=== PATIENT | female | born 1990 | race Caucasian/White ===

== ENCOUNTER 2024-08-21 01:29 | Emergency (ER) | payer SELFPAY ==
[2024-08-21 01:32] VITALS: BP 131/60; PULSE 88; RESP 18; TEMP 36.7; O2SAT 100
--- NOTE | 2024-08-21 01:44 | ED.GENADULT ---
HPI - General Adult General Chief complaint: Overdose Stated complaint: overdose Time Seen by Provider: 08/21/24 01:42 Source: patient and EMS Mode of arrival: EMS Limitations: no limitations History of Present Illness HPI narrative: 34 years old white female came to the ED by ambulance/ tacker off with possible fentanyl overdose. Patient was driving fast, followed by a policman, once arrived to her house came out of the car and leaned against the car and told the policman that she had fentanyl overdose and received 3 shots of Narcan at her friend's house prior to driving. On arrival to the ED patient is awake, alert oriented x4 feeling nauseated, vomited once. Feeling sleepy and tired. Related Data Home Medications ?Medication ?Instructions ?Recorded ?Confirmed ?Last Taken ?Type bupropion HCl 150 mg 24 hr tablet, mg PO 08/21/24 Unknown History extended release enoxaparin 40 mg/0.4 mL mg 08/21/24 Unknown History subcutaneous syringe Allergies Allergy/AdvReac Type Severity Reaction Status Date / Time Penicillins Allergy Mild Rash Verified 08/21/24 04:17 Review of Systems Review of Systems: All systems reviewed & are unremarkable except as noted in HPI and below Exam Narrative: General appearance: Well-developed, well-nourished, patient is not choking or have trouble breathing, does not have limb body, Skin: Normal color, no discolored skin in the lips and nails Head: Normocephalic, nontraumatic Eyes: Clear conjunctiva people are normal size, reactive to light bilaterally, ENT: Oropharynx normal, ears normal, nose normal Neck: Supple, nontender Chest and respiratory: Airway patent, no respiratory distress, no accessory muscle use Heart: Regular rate/rhythm Abdomen: Soft, nontender, no organomegaly, quiet bowel sounds Vascular: Normal peripheral pulses, normal capillary refill. Musculoskeletal: Normal range of motion, nontender back Neurologic: Alert and oriented ?3, VENDING TECHNICIAN is normal as tested, no gross motor deficit Course Vital Signs Vital signs: Vital Signs Temperature 36.7 C 08/21/24 01:32 Pulse Rate 88 08/21/24 01:32 Respiratory Rate 18 08/21/24 01:32 Blood Pressure 131/60 08/21/24 01:32 Pulse Oximetry 100 08/21/24 01:32 Oxygen Delivery Room Air 08/21/24 01:32 Temperature 36.7 C 08/21/24 01:32 Pulse Rate 88 08/21/24 01:32 Respiratory Rate 18 08/21/24 01:32 Blood Pressure 131/60 08/21/24 01:32 Pulse Oximetry 100 08/21/24 01:32 Oxygen Delivery Room Air 08/21/24 01:32 Medical Decision Making MDM Narrative Medical decision making narrative: patient came to the ED with possible fentanyl overdose vital signs on arrival to the ED stable Physical examination showing patient without significant physical findings Differential diagnosis include poly drug use, alcohol., lying to get away from the police Blood workup today includes CBC, CMP, urine drug screen which showed no significant abnormality. Lying to get away from the police is my concern. Differential Diagnosis Differential Diagnosis: as above Vital Signs Vital Signs: Vital Signs Temperature 36.7 C 08/21/24 01:32 Pulse Rate 88 08/21/24 01:32 Respiratory Rate 18 08/21/24 01:32 Blood Pressure 131/60 08/21/24 01:32 Pulse Oximetry 100 08/21/24 01:32 Oxygen Delivery Room Air 08/21/24 01:32 Temperature 36.7 C 08/21/24 01:32 Pulse Rate 88 08/21/24 01:32 Respiratory Rate 18 08/21/24 01:32 Blood Pressure 131/60 08/21/24 01:32 Pulse Oximetry 100 08/21/24 01:32 Oxygen Delivery Room Air 08/21/24 01:32 Lab Data 08/21/24 02:21 08/21/24 02:21 Labs: Lab Results 08/21/24 Range/Units 02:21 WBC 7.0 (4.8-10.8) K/mm3 RBC 4.26 (4.20-5.40) M/mm3 Hgb 11.6 L (12.0-15.0) g/dL Hct 35.4 (35.0-49.0) % MCV 83.1 (78.0-102.0) fL MCH 27.2 (27.0-31.0) pg MCHC 32.8 (32-36) g/dL RDW 13.6 (11.6-14.4) % Plt Count 274 (150-420) K/mm3 MPV 9.7 (9.2-11.8) fl Immature Gran % (Auto) 0.4 H (0.0-0.0) % Neut % (Auto) 61.0 (50.0-70.0) % Lymph % (Auto) 26.8 (18.0-42.0) % [place] % (Auto) 7.7 (2.0-11.0) % Eos % (Auto) 3.7 (1.0-6.0) % Baso % (Auto) 0.4 (0.0-1.0) % Lymph # (Auto) 1.88 (1.10-4.50) K/mm3 [place] # (Auto) 0.54 (0.10-0.90) K/mm3 Eos # (Auto) 0.26 (0.02-0.50) K/mm3 Baso # (Auto) 0.03 (0.00-0.10) K/mm3 Abs Immat Gran (auto) 0.03 H (0.00-0.00) K/mm3 Absolute Neuts (auto) 4.28 (1.70-7.20) K/mm3 Absolute Nucleated RBC 0.00 (0.00-0.00) K/mm3 Nucleated RBC % 0.0 (0-0.0) % Sodium 141 (136-145) mmol/L Potassium 3.2 L (3.5-5.1) mmol/L Chloride 105 (98-108) mmol/L Carbon Dioxide 26 (21-32) mmol/L Anion Gap 10 (4-12) mmol/L BUN 6 L (7-18) mg/dL Creatinine 0.67 (0.55-1.02) mg/dL Estim Creat Clear Calc 95 ml/min Estimated GFR > 60 (59 - ) Glucose 82 (70-99) mg/dL Calculated Osmolality 288 (285-295) mOsm/kg Calcium 8.6 (8.5-10.1) mg/dL Total Bilirubin 0.4 (0.00-1.00) mg/dL AST 11 L (15-37) U/L ALT 21 (14-59) U/L Alkaline Phosphatase 116 (46-116) U/L Total Protein 6.5 (6.4-8.2) g/dL Albumin 2.8 L (3.4-5.0) g/dL Urine Opiates Screen Negative (Negative) Urine Methadone Screen Negative (Negative) Ur Barbiturates Screen Negative (Negative) Ur Phencyclidine Scrn Negative (Negative) Ur Amphetamine Screen Negative (Negative) U Benzodiazepines Scrn Negative (Negative) Urine Cocaine Screen Negative (Negative) U Cannabinoids Screen Negative (Negative) Ethyl Alcohol < 3 (0-6) mg/dL Critical Care Time Critical Care Time Critical Care Time: No Discharge Plan Discharge Clinical Impression: Normal physical exam Patient Disposition: Home, Self-Care Condition: Improved Instructions: Normal Exam (ED) Additional Instructions: Return if symptoms are worsening , call your family physician for appointment, take Tylenol as as needed for aches and pain, continue home medications. Follow-up with substance abuse instructions for help. Patient Language: Sammarinese Prescriptions: No Action enoxaparin 40 mg/0.4 mL syringe bupropion HCl 150 mg tablet extended release 24 hr PO Follow-up/Referrals: Charles Roberts M.D. [Primary Care Provider] -
--- OUTSIDE RECORDS SUMMARY | 2024-08-21 01:49 | XMS_ITS | Clinical Summary ---
Author Organization [facility] Address [address] [place] [address] Care Team Providers Care Skein Yarn Dyer Name Role Phone Charles Roberts MD Primary Care Provider [phone] Allergies Active Allergy Reactions Criticality Noted Date Comments Codeine Itching 11/09/2017 Penicillins Throat swelling 05/31/2020 Medications sertraline 100 MG tablet Take 1 tablet (100 mg total) by mouth daily. Active QUEtiapine (SEROQUEL) 50 MG tablet Take 1 tablet (50 mg total) by mouth nightly at bedtime. Active hydrOXYzine (VISTARIL) 50 MG capsule Take 1 capsule (50 mg total) by mouth 3 (three) times daily as needed. FOR ANXIETY 2 Active omeprazole (PRILOSEC) 20 MG capsule Take 1 capsule (20 mg total) by mouth daily. Active dicyclomine (BENTYL) 20 MG tablet Take 1 tablet (20 mg total) by mouth every 6 (six) hours. 120 tablet 4 Active famotidine (PEPCID) 20 MG tablet Take 1 tablet (20 mg total) by mouth 2 (two) times daily. 20 tablet 4 Active ondansetron (ZOFRAN-ODT) 4 MG disintegrating tablet Take 1 tablet (4 mg total) by mouth every 8 (eight) hours as needed for Nausea. 20 tablet 4 Active Active Problems Problem Noted Date Diagnosed Date ([facility]) 06/07/2021 PRES (posterior reversible encephalopathy syndro me) 11/09/2017 Stroke ([facility]) 11/08/2017 Estimated Date of Delivery Comme nts Yes 03/10/2025 Encounters Date Type Department Care Team Description 08/09/2024 12:30 AM MEDICAL ADMINISTRATOR - 08/09/2024 1:49 AM MEDICAL ADMINISTRATOR Emergency [facility] [address] [place] [address] [place] [address] Chago Worley MD Vomiting Discharge Disposition: Home or Self Care (Routine Discharge) 08/09/2024 Travel from Last 3 Months Family History Medical History Relation Comments Cancer Father Cancer Maternal Grandfather Diabetes Maternal Grandfather Cancer Maternal Grandmother Diabetes Maternal Grandmother thyroid Mother Relation Status Comments Father Alive colon cancer bra in tumor Maternal Grandfather Maternal Grandmother Mother Alive Social History Tobacco Use Types Packs/Day Years Used Date Smoking Tobacco: Never Smokeless Tobacco: Never Tobacco Cessation:Counseling Given: Not Answered Alcohol Use Standard Drinks/Week Comments Not Currently 0 (1 standard drink = 0.6 oz pur e alcohol) Estimated Date of Delivery Comme nts Yes 03/10/2025 Sex and Gender Information Value Date Recorded Sex Assigned at Female 06/16/2021 7:03 AM MEDICAL ADMINISTRATOR Legal Sex Female 10:07 PM MEDICAL ADMINISTRATOR Gender Identity Female 06/16/2021 7:03 AM MEDICAL ADMINISTRATOR Sexual Orientation Straight 06/16/2021 7: 03 AM MEDICAL ADMINISTRATOR Last Filed Vital Signs Vital Sign Reading Time Taken Comments Blood Pressure 135/102 08/09/2024 1:45 AM MEDICAL ADMINISTRATOR Pulse 95 08/09/2024 12:30 AM MEDICAL ADMINISTRATOR Temperature 36.7 C (98 F) 08/09/2024 12:30 AM MEDICAL ADMINISTRATOR Respiratory Rate 16 08/09/2024 12:30 AM MEDICAL ADMINISTRATOR Oxygen Saturation 100% 08/09/2024 1:45 AM MEDICAL ADMINISTRATOR Inhaled Oxygen Concentration - - Weight 71.8 kg (158 lb 6.4 oz) 08/09/2024 12:32 AM MEDICAL ADMINISTRATOR Height 160 cm (5' 3 ) 08/09/2024 12:32 AM MEDICAL ADMINISTRATOR Body Mass Index 28.06 08/09/2024 12:32 AM MEDICAL ADMINISTRATOR Plan of Treatment Health Maintenance Due Date Last Done Comments Cervical Cancer Screening Pa p Smear (Age 30 to 64) Every 3 Years 1988 Annual Physical 1991 Hepatitis C 2006 Hepatitis B Vaccines (1 of 3 - 19+ 3-dose series) 2007 Cervical Cancer Screening Pa p with HPV Testing (Age 30 to 64) Every 5 Years 2018 Cervical Cancer Screening wi th HPV 2018 COVID-19 Vaccine (3 - 2023-2 5 season) 2024 08/11/2021, 01/10/2021 Influenza Adult (#1) 2024 DTaP, Tdap and Td Vaccines ( 2 - Td or Tdap) 08/08/2029 08/08/2019 HPV Vaccines Aged Out No longer eligi ble based on patient's age to complete this topic Meningococcal B Vaccine Aged Out No l onger eligible based on patient's age to complete this topic Meningococcal Vaccine Aged Out No sophia stefanie eligible based on patient's age to complete this topic Pneumococcal Vaccine: Pediatrics (0 to 5 Years) and At-Risk Patients (6 to 64 Years) Aged Out No longer eligible b ased on patient's age to complete this topic RSV Immunization or 60+ Years (No Doses Required) Completed RSV Immunizations Under 20 Months Aged Out No longer eligible b ased on patient's age to complete this topic Procedures Procedure Name Priority Date/Time Associated Diagnosis Comments COMPREHENSIVE METABOLIC PANEL STAT 08/09/2024 12:52 AM MEDICAL ADMINISTRATOR CBC W/DIFF AUTOMATED STAT 08/09/2024 12:52 AM MEDICAL ADMINISTRATOR INFLUENZA A & B STAT 08/09/2024 12:45 AM MEDICAL ADMINISTRATOR CORONAVIRUS (COVID-19) ANTIGEN STAT 08/09/2024 12:45 AM MEDICAL ADMINISTRATOR from Last 3 Months Results * (ABNORMAL) COMPREHENSIVE METABOLIC PANEL (08/09/2024 12:52 AM MEDICAL ADMINISTRATOR) SODIUM S/P/B 138 136 - 145 MMOL/L 08/09/2024 1:14 AM MEDICAL ADMINISTRATOR [facility] POTASSIUM S/P/B 3.8 3.5 - 5.1 MMOL/L 08/09/2024 1:14 AM MEDICAL ADMINISTRATOR [facility] Comment:MILD HEMOLYSIS, RESU LT MAY BE AFFECTED. CHLORIDE S/P/B 101 98 - 107 MMOL/L 08/09/2024 1:14 AM [facility] CO2 24.6 21.0 - 32.0 MMOL/L 08/09/2024 1:14 AM [facility] GLUCOSE 97 70 - 99 MG/DL 08/09/2024 1:14 AM [facility] Comment: FASTING GLUCOSE 100 TO 125 MG/DL IS CONSISTENT WITH IMPAIRED FASTING GLUCOSE. FASTING GLUCOSE >125 MG/DL IS CONSISTENT WITH DIABETES. RANDOM GLUCOSE >200 MG/DL WITH HYPERGLYCEMIC SYMPTOMS IS CONSISTENT WITH DIABETES. PER ADA GUIDELINES BUN 9 6 - 24 MG/DL 08/09/2024 1:14 AM [facility] CREATININE S/P/B 0.68 0.55 - 1.02 MG/DL 08/09/2024 1:14 AM [facility] CALCIUM S/P/B 8.8 8.4 - 10.5 MG/DL 08/09/2024 1:14 AM [facility] BILIRUBIN TOTAL S/P/B 1.4(H) 0.2 - 1.0 MG/DL 08/09/2024 1:14 AM [facility] Comment: THIS ASSAY IS NOT RECOMMENDED FOR PATIENTS UNDERGOING TREATMENT WITH ELTROMBOPAG DUE TO THE POTENTIAL FOR FALSELY ELEVATED RESULTS. ALKALINE PHOSPHATASE S/P/B 126(H) 37 - 98 U/L 08/09/2024 1:14 AM [facility] AST 37 15 - 37 U/L 08/09/2024 1:14 AM [facility] Comment:MILD HEMOLYSIS, RESU LT MAY BE AFFECTED. ALT 33 14 - 59 U/L 08/09/2024 1:14 AM [facility] TOTAL PROTEIN S/P/B 7.3 6.4 - 8.2 G/DL 08/09/2024 1:14 AM [facility] ALBUMIN S/P/B 3.5 3.4 - 5.0 G/DL 08/09/2024 1:14 AM [facility] ANION GAP 12.4 5.0 - 15.0 MMOL/L 08/09/2024 1:14 AM MEDICAL ADMINISTRATOR [facility] OSMOLALITY (CALC) 285 MOSM/KG 025 1:14 AM [facility] Comment:REFERENCE RANGE NOT ESTABLISHED GFR ESTIMATE >90 >89 ML/MIN/1. 73 M2 08/09/2024 1:14 AM [facility] GFR NOTES GFR REFERENCE S: 08/09/2024 1:14 AM [facility] Comment: THE ESTIMATED GFR IS CALCULATED USING THE 2020 CKD-EPI EQUATION. THE FOLLOWING CATEGORIES FOR GRADING RENAL FUNCTION ARE RECOMMENDED BY THE INTERNATIONAL SOCIETY OF NEPHROLOGY (KDIGO 2012 CLINICAL PRACTICE GUIDELINE). G1,NORMAL OR HIGH: >89 ml/min/1.73 m2 G2,MILDLY DECREASED: 60-89 ml/min/1.73 m2 G3A,MILDLY TO MODERATELY DECREASED: 45-59 ml/min/1.73 m2 G3B,MODERATELY TO SEVERELY DECREASED: 30-44 ml/min/1.73 m2 G4,SEVERELY DECREASED: 15-29 ml/min/1.73 m2 G5,KIDNEY FAILURE: <15 ml/min/1.73 m2 08/09/2024 12:5 2 AM MEDICAL ADMINISTRATOR Chago Worley MD LABORATORY Final Result [facility] [address] [place] [address], * (ABNORMAL) CBC W/DIFF AUTOMATED (08/09/2024 12:52 AM MEDICAL ADMINISTRATOR) WBC 10.44 4.00 - 10.80 x10'3/uL 08/09/2024 12:57 AM MEDICAL ADMINISTRATOR [facility] RBC 5.14 4.10 - 5.40 x10'6/uL 08/09/2024 12:57 AM [facility] HGB 14.1 12.0 - 16.0 G/DL 08/09/2024 12:57 AM [facility] HCT 41.0 36.0 - 47.0 % 08/09/2024 12:57 AM [facility] MCV 79.8 78.0 - 100.0 FL 08/09/2024 12:57 AM [facility] MCH 27.4 27.0 - 31.0 PG 08/09/2024 12:57 AM [facility] MCHC 34.4 33.0 - 36.0 G/DL 08/09/2024 12:57 AM [facility] RDW 12.8 11.5 - 14.5 % 08/09/2024 12:57 AM [facility] PLT 252 150 - 350 x10'3/uL 08/09/2024 12:57 AM [facility] MPV 9.5 7.4 - 10.4 FL 08/09/2024 12:57 AM [facility] CBC COMMENT NORMAL REFERENCE RANGE NOT ESTABLISHED FOR THE PROPORTIONAL LEUKOCYTE DIFFERENTIAL. 08/09/2024 12:57 AM [facility] NEUTROPHILS % 73.7 % 08/09/2024 12:57 AM [facility] LYMPHOCYTES % 17.9 % 08/09/2024 12:57 AM [facility] MONOCYTES % 6.7 % 08/09/2024 12:57 AM [facility] EOSINOPHILS % 1.0 % 08/09/2024 12:57 AM [facility] BASOPHILS % 0.2 % 08/09/2024 12:57 AM [facility] IMMATURE GRANS % 0.5 % 08/09/19 12:57 AM [facility] NRBC % 0.0 % 08/09/2024 12:57 AM [facility] ABS. NEUTROPHILS 7.70 1.60 - 8.30 x10'3/uL 08/09/2024 12:57 AM [facility] ABS. LYMPHOCYTES 1.87 0.80 - 4.70 x10'3/uL 08/09/2024 12:57 AM [facility] ABS. MONOCYTES 0.70 0.00 - 1.50 x10'3/uL 08/09/2024 12:57 AM [facility] ABS. EOSINOPHILS 0.10 0.00 - 0.40 x10'3/uL 08/09/2024 12:57 AM MEDICAL ADMINISTRATOR [facility] ABS. BASOPHILS 0.02 0.00 - 0.20 x10'3/uL 08/09/2024 12:57 AM MEDICAL ADMINISTRATOR [facility] ABS. IMMATURE GRANULOCYTES 0.05(H) 0.00 - 0.03 x10'3/uL 08/09/2024 12:57 AM MEDICAL ADMINISTRATOR [facility] ABS. NUCLEATED RBC'S 0.00 0.00 - 0.01 x10'3/uL 08/09/2024 12:57 AM MEDICAL ADMINISTRATOR [facility] 08/09/2024 12:5 2 AM MEDICAL ADMINISTRATOR Chago Worley MD LABORATORY Final Result Performing Organization Address [facility] [place] [address], * CORONAVIRUS (COVID-19) ANTIGEN (08/09/2024 12:45 AM MEDICAL ADMINISTRATOR) CORONAVIRUS ANTIGEN IA NEGATIVE NEGATIVE 08/09/2024 1:15 AM MEDICAL ADMINISTRATOR [facility] Comment: NEGATIVE RESULTS DO NOT RULE OUT SARS-COV-2 INFECTION AND SHOULD NOT BE USED THE SOLE BASIS FOR TREATMENT OR PATIENT MANAGEMENT DECISIONS, INCLUDING INFECTION CONTROL DECISIONS. NEGATIVE RESULTS SHOULD BE CONSIDERED IN THE CONTEXT OF A PATIENT'S RECENT EXPOSURES, HISTORY AND THE PRESENCE OF CLINICAL SIGNS AND SYMPTOMS CONSISTENT WITH COVID 19. THIS TEST HAS BEEN AUTHORIZED BY THE FDA UNDER AN EMERGENCY USE AUTHORIZATION (EUA) FOR USE BY AUTHORIZED LABORATORIES. SPECIMEN TYPE NASAL 08/09/2024 12:52 AM MEDICAL ADMINISTRATOR [facility] NASAL NASAL STRUCTURE / Unknown 08/09/2024 12:45 AM MEDICAL ADMINISTRATOR Chago Worley MD MICROBIOLOGY - GENERAL ORDERA BLES Final Result Performing Organization Address [facility]/ZIP Co de Phone Number [facility] [address] [place], [place] [address] [address], * INFLUENZA A & B (08/09/2024 12:45 AM MEDICAL ADMINISTRATOR) SPECIMEN TYPE (INFLUENZA) NASOPHARYNGEAL SWAB 08/09/2024 12:52 AM MEDICAL ADMINISTRATOR [facility] INFLUENZA A NEGATIVE NEGATIVE 08/09/2024 1:15 AM MEDICAL ADMINISTRATOR [facility] INFLUENZA B NEGATIVE NEGATIVE 08/09/2024 1:15 AM MEDICAL ADMINISTRATOR [facility] Comment: A NEGATIVE RESULT DOES NOT EXCLUDE INFLUENZA VIRUS INFECTION. IF INFLUENZA IS CIRCULATING IN YOUR COMMUNITY, A DIAGNOSIS OF INFLUENZA SHOULD BE CONSIDERED BASED ON A PATIENT'S CLINICAL PRESENTATION AND EMPIRIC ANTIVIRAL TREATMENT SHOULD BE CONSIDERED IF INDICATED. NASOPHARYNGEAL SWAB / Unknown 08/09/2024 12:45 AM MEDICAL ADMINISTRATOR Chago Worley MD MICROBIOLOGY - GENERAL ORDERA BLES Final Result [facility] [address] [place] [id number], from Last [address] [place] [address] [address] Advance Directives * Full Code (Latest Code Status on File) Date Activated Date Inactivated Comments 06/17/2021 2:22 PM 06/19/2021 2:29 PM * Full Code Date Activated Date Inactivated Comments 06/16/2021 6:25 AM 06/17/2021 2:22 PM * Full Code Date Activated Date Inactivated Comments 06/08/2021 1:25 AM 06/08/2021 4:44 AM * Full Code Date Activated Date Inactivated Comments 06/07/2021 9:53 PM 06/08/2021 1:25 AM * Full Code Date Activated Date Inactivated Comments 05/20/2021 10:19 AM 05/20/2021 2:28 PM Care Teams Skein Yarn Dyer Relationship Specialty Start Date End Date Charles Roberts MD [address] [place] [id number] PCP - General FAMILY PRACTICE 11/09/17
--- OUTSIDE RECORDS SUMMARY | 2024-08-21 01:49 | XMS_ITS | Encounter Summary ---
Author Organization [facility] Address [address] [place] [address] Care Team Providers Care Furniture Detailer Name Role Phone Charles Roberts MD Primary Care Provider [phone] Encounter Details Date Type Department Care Team (Late st Contact Info) Description 12/10/2018 Abstract [facility] CONVERSION [address] [place] [address] , Generic Conversion, Social History Tobacco Use Types Packs/Day Years Used Date Smoking Tobacco: Never Smokeless Tobacco: Never Alcohol Use Standard Drinks/Week Comments Yes 0 (1 standard drink = 0.6 oz pur e alcohol) Comments Unknown Sex and Gender Information Value Date Recorded Sex Assigned at Female 06/16/2021 7:03 AM SURG NURSE Legal Sex Female 10:07 PM SURG NURSE Gender Identity Female 06/16/2021 7:03 AM SURG NURSE Sexual Orientation Straight 06/16/2021 7: 03 AM SURG NURSE documented as of this encounter Plan of Treatment Not on file documented as of this encounter Visit Diagnoses Not on filedocumented in this encounter Additional Health Concerns Infection Onset Date Last Indicated Resolved Time COVID-19 Rule Out 05/31/2020 05/31/2020 06/01/2020 9:52 AM SURG NURSE COVID-19 Rule Out 10/09/2020 10/09/2020 10/11/2020 6:58 AM CDT COVID-19 Rule Out 06/07/2021 06/07/2021 06/07/2021 10:25 PM SURG NURSE COVID-19 Rule Out 07/07/2021 07/07/2021 07/07/2021 1:59 AM SURG NURSE COVID-19 Rule Out 04/21/2024 04/21/2024 04/21/2024 10:40 AM CDT COVID-19 Rule Out 08/09/2024 08/09/2024 08/09/2024 1:15 AM SURG NURSE documented as of this encounter Care Teams Furniture Detailer Relationship Specialty Start Date End Date Charles Roberts MD [address] [place] [id number] PCP - General FAMILY PRACTICE 11/09/17 documented as of this encounter
[2024-08-21] MEDS: NALOXONE HCL 0.4 MG/ML VIAL IV PUSH ×2 (01:55→02:20)
[2024-08-21] MEDS: SODIUM CHLORIDE 0.9% IV 1,000 ML 999 ML IV CONT (01:55)
[2024-08-21] MEDS: ONDANSETRON INJ 4 MG/2 ML VIAL IV PUSH (02:20)
[2024-08-21 02:42] LABS: Basophils Absolute Auto 0.03 K/mm3 (0.00-0.10); Basophils Percent Auto 0.4 % (0.0-1.0); Eosinophils Absolute Auto 0.26 K/mm3 (0.02-0.50); Eosinophils Percent Auto 3.7 % (1.0-6.0); Hematocrit 35.4 % (35.0-49.0); Hemoglobin 11.6 g/dL (12.0-15.0); Immature Granulocyte Absolute 0.03 K/mm3 (0.00-0.00); Immature Granulocyte Percent A 0.4 % (0.0-0.0); Lymphocytes Absolute Auto 1.88 K/mm3 (1.10-4.50); Lymphocytes Percent Auto 26.8 % (18.0-42.0); Mean Corpuscular HGB Conc 32.8 g/dL (32-36); Mean Corpuscular Hemoglobin 27.2 pg (27.0-31.0); Mean Corpuscular Volume 83.1 fL (78.0-102.0); Mean Platelet Volume 9.7 fl (9.2-11.8); Monocytes Absolute Auto 0.54 K/mm3 (0.10-0.90); Monocytes Percent Auto 7.7 % (2.0-11.0); Neutrophils Absolute Auto 4.28 K/mm3 (1.70-7.20); Platelet Count Result 274 K/mm3 (150-420); Red Blood Count 4.26 M/mm3 (4.20-5.40); Red Cell Distribution Width 13.6 % (11.6-14.4)
[2024-08-21 03:01] LABS: Alanine Aminotransferase 21 U/L (14-59); Albumin Level 2.8 g/dL (3.4-5.0); Alkaline Phosphatase 116 U/L (46-116); Anion Gap 10 mmol/L (4-12); Aspartate Amino Transferase 11 U/L (15-37); Bilirubin,Total 0.4 mg/dL (0.00-1.00); Blood Urea Nitrogen 6 mg/dL (7-18); Calcium 8.6 mg/dL (8.5-10.1); Carbon Dioxide 26 mmol/L (21-32); Chloride 105 mmol/L (98-108); Estimated CRCL calculation 95 ml/min; Estimated Glomerular Filt Rate > 60; Glucose 82 mg/dL (70-99); Osmolality Calculated 288 mOsm/kg (285-295); Potassium 3.2 mmol/L (3.5-5.1); Sodium 141 mmol/L (136-145); Total Protein 6.5 g/dL (6.4-8.2)
[2024-08-21 03:05] LABS: Ethanol < 3 mg/dL (0-6)
[2024-08-21 04:23] LABS: Amphetamine Screen Urine Negative (Negative); Barbiturate Screen Urine Negative (Negative); Benzodiazepines Screen Urine Negative (Negative); Cannabinoid Screen Urine Negative (Negative); Cocaine Screen Urine Negative (Negative); Methadone Screen Urine Negative (Negative); Opiate Screen Urine Negative (Negative); Phencyclidine Screen Urine Negative (Negative)
[2024-08-21 06:17] VITALS: BP 113/72; PULSE 70; RESP 18; TEMP 36.8; O2SAT 99
== END 2024-08-21 06:17 | disposition home or self-care (01) ==
PROVIDERS: Emergency Provider Emergency Medicine; PCP Family Medicine
DX: Z03.89 Encounter for observation for other suspected diseases and conditions ruled out (principal)
CPT/HCPCS: 36415; 80053; 80307; 82077; 85025; 96361; 96374; 96375; 99284; J2310; J2405; J7030